=== PATIENT | female | born 1980 | race Caucasian/White ===

== ENCOUNTER 2020-01-21 09:07 | Emergency (ER) | payer OTHER, BC ==
[~2020-01-21] VITALS: Ht 162.6 cm; Wt 75.8 kg
[2020-01-21 10:08] LABS: Source, Urine Clean Catch
[2020-01-21 10:17] LABS: BASOPHILS ABSOLUTE AUTO 0.02 K/mm3 (0.00-0.23); BASOPHILS PERCENT AUTO 0 % (0-2); EOSINOPHILS ABSOLUTE AUTO 0.12 K/mm3 (0.00-0.68); EOSINOPHILS PERCENT AUTO 2 % (0-6); Hematocrit 34.1 % (33.0-51.0); IMMATURE GRAN ABSOLUTE AUTO 0.02 K/mm3 (0.00-0.10); IMMATURE GRAN PERCENT AUTO 0 % (0-1); LYMPHOCYTES ABSOLUTE AUTO 1.81 K/mm3 (0.84-5.20); LYMPHOCYTES PERCENT AUTO 25 % (21-46); MONOCYTES ABSOLUTE AUTO 0.38 K/mm3 (0.16-1.47); MONOCYTES PERCENT AUTO 5 % (4-13); Mean Corpuscular HGB 22.7 pg (26.0-34.0); Mean Corpuscular HGB Conc 29.3 g/dL (31.5-36.5); Mean Corpuscular Volume 77 fL (80-100); Mean Platelet Volume 9.7 fL (9.1-12.4); NEUTROPHILS ABSOLUTE AUTO 4.95 K/mm3 (1.96-9.15); NEUTROPHILS PERCENT AUTO 68 % (41-73); Platelet Count 272 K/mm3 (150-400); RDW Coefficient Variation 15.1 % (11.7-14.2); RDW Standard Deviation 42.3 fL (35.1-46.3); Red Blood Cell Count 4.41 M/mm3 (3.80-5.20)
[2020-01-21 10:18] LABS: Bilirubin, Urine Neg (Neg); Blood, Urine 4+ (Neg); Glucose Qualitative, Urine Neg (Neg); Ketones, Urine Neg (Neg); Leukocyte Esterase, Urine Neg (Neg); Nitrite, Urine Neg (Neg); Protein, Urine Neg (Neg); Specific Gravity, Urine 1.015 (1.003-1.022); Urobilinogen, Urine NORM (Normal)
[2020-01-21 10:34] LABS: Alanine Aminotransfer (ALT/SGP 42 U/L (12-78); Albumin, Blood 3.6 g/dL (3.4-5.0); Alk Phos 79 U/L (50-136); Anion Gap 5 mmol/L (6-16); Aspartate Aminotrans (AST/SGOT 24 U/L (12-37); Bilirubin, Total 0.6 mg/dL (0.1-1.0); Blood Urea Nitrogen 12 mg/dL (8-24); Bun/Creatinine Ratio 20.6 (12.0-20.0); CO2, Blood 24 mmol/L (21-32); Calcium, Blood 8.2 mg/dL (8.5-10.1); Chloride, Blood 111 mmol/L (98-108); Creatinine, Blood 0.58 mg/dL (0.40-1.00); Globulin, Blood 3.7 g/dL (2.2-4.0); Glomerular Filtration Rate >60 (60-); Glucose, Blood 85 mg/dL (70-99); Potassium, Blood 3.6 mmol/L (3.5-5.5); Sodium, Blood 140 mmol/L (136-145); Total Protein, Blood 7.3 g/dL (6.4-8.2)
[2020-01-21 10:35] LABS: Appearance, Urine Clear (Clear); Color, Urine Yellow (P-Yellow)
[2020-01-21 10:36] LABS: White Blood Cells, Urine 0-2 /hpf (0-5)
[2020-01-21 10:37] LABS: Bacteria Rare /hpf; Squamous Epithelial Cells Few /hpf (Few)
[2020-01-21 10:40] LABS: Percent Saturation 6.4 % (15.0-50.0)
[2020-01-21] MEDS ORDERED: PRENATAL TABLE1 EAC2 PO (10:46)
[2020-01-21] MEDS ORDERED: CETI5 (10:46)
[2020-01-21] MEDS ORDERED: IRON236 M1 PO (11:39)
== END 2020-01-21 11:58 | disposition home or self-care (01) ==
LOC: ER 09:07
PROVIDERS: Emergency Medicine; Physician Assistant
DX: O02.1 Missed abortion (principal); O99.011 Anemia complicating pregnancy, first trimester; Z88.0 Allergy status to penicillin; Z88.2 Allergy status to sulfonamides; Z3A.09 9 weeks gestation of pregnancy
CPT/HCPCS: 76801; 76817; 80053; 81001; 83540; 83550; 84702; 85025; 86900; 86901; 99284-25; J7120

== ENCOUNTER 2020-12-06 08:23 | Emergency (ER) | payer OTHER, BC ==
[~2020-12-06] VITALS: Ht 162.6 cm; Wt 77.1 kg
[~2020-12-06 08:23] MED LIST: CETI5; IRON236 M1 PO; PRENATAL TABLE1 EAC2 PO
[2020-12-06] MEDS ORDERED: AZELASTINE137 MCG/06 NS (09:13)
[2020-12-06] MEDS ORDERED: Norco 5-325 Ta1 EACH PO (12:24)
[2020-12-06] MEDS ORDERED: CYCL10 PO (12:24)
== END 2020-12-06 12:36 | disposition home or self-care (01) ==
LOC: ER 08:23
DX: S29.012A Strain of muscle and tendon of back wall of thorax, initial encounter (principal); Z88.0 Allergy status to penicillin; Z88.2 Allergy status to sulfonamides; X58.XXXA Exposure to other specified factors, initial encounter
CPT/HCPCS: 71046; 76770; 96372; 99284-25; A9270; A9270-GY; J1885